=== PATIENT | female | born 1975 | race Caucasian/White ===

== ENCOUNTER 2019-12-05 21:40 | Emergency (ER) | payer SELFPAY ==
[~2019-12-05] VITALS: Ht 165.1 cm; Wt 68.0 kg
[2019-12-05] MEDS ORDERED: ONDANSETRON HCL 4MG/2ML INJ IV STA (22:28)
[2019-12-05] MEDS ORDERED: SODIUM CHLORIDE 0.9% 1,000 ML IV ONE (22:28)
[2019-12-05] MEDS ORDERED: LORAZEPAM 2MG/ML CPJ IV ONE (22:30)
[2019-12-05] MEDS ORDERED: IPRATROPIUM/ALBUTEROL 0.5-3(2.5)MG/3ML NEB HHN ONE (22:45)
[2019-12-05 23:14] LABS: CHLORIDE 102 mEq/L (98-107)
[2019-12-05 23:17] LABS: ETHANOL BLOOD < 10 mg/dL
[2019-12-05 23:20] LABS: BASOPHILS % 0.6 % (0.0-2.0); EOSINOPHILS % 2.2 % (0.0-5.0); HEMATOCRIT. 32.2 % (36.0-48.0); HEMOGLOBIN. 10.9 g/dL (12.0-16.0); LYMPHOCYTES % 35.2 % (20.0-50.0); MEAN CORPUSCULAR HEMOGLOBIN 31.2 pg (28.0-32.0); MEAN CORPUSCULAR VOLUME 92.7 fL (81.0-99.0); MEAN PLATELET VOLUME 7.3 fl (7.4-10.4); MONOCYTES % 9.2 % (2.0-8.0); NEUTROPHILS % 52.8 % (40.0-76.0); PLATELET 467 x1000/uL (130-400); RED BLOOD CELL COUNT 3.47 mill/uL (4.2-5.4)
[2019-12-06 02:00] LABS: *BARBITURATES SCREEN URINE NEGATIVE (NEGATIVE)
[2019-12-06] MEDS ORDERED: KETOROLAC 30MG/ML VIAL IV ONE (02:00)
[2019-12-06 02:01] LABS: *COCAINE SCREEN URINE NEGATIVE (NEGATIVE); METHADONE URINE SCREEN NEGATIVE (NEGATIVE); PHENCYCLIDINE URINE SCREEN NEGATIVE (NEGATIVE)
[2019-12-06 02:10] LABS: *AMPHETAMINES SCREEN URINE PRESUMTIVE POSITIVE (NEGATIVE); *BENZODIAZEPINES SCREEN URINE PRESUMTIVE POSITIVE (NEGATIVE); CANNABINOID URINE SCREEN PRESUMTIVE POSITIVE (NEGATIVE)
[2019-12-06 05:55] VITALS: BP 111/72
[2019-12-09 09:11] LABS: OPIATES URINE SCREEN PRESUMTIVE POSITIVE (NEGATIVE)
== END 2019-12-06 05:55 | disposition home or self-care (01) ==
LOC: ER 21:40
DX: R06.02 Shortness of breath (principal); G92 Toxic encephalopathy; Z98.890 Other specified postprocedural states
CPT/HCPCS: 36415; 71045; 80053; 80305; 80320; 83690; 83880; 84484; 85025; 94640; 96361; 96374; 96375; 99285; J1885; J2060; J2405; J7030; J7610; Z7610; G0480